=== PATIENT | male | born 1935 | race Caucasian/White ===

== ENCOUNTER 2020-12-15 08:45 | Day surgery (SDC) | payer OTHER ==
[~2020-12-15] VITALS: Ht 152.4 cm; Wt 54.5 kg
[2020-12-15] MEDS ORDERED: albumin 25% 100mL bottle x 1 IV PRN (09:35)
[2020-12-15 09:49] VITALS: BP 126/74
[2020-12-15] MEDS ORDERED: LISI40TA13 PO (10:03)
[2020-12-15] MEDS ORDERED: POTA10CA44 PO (10:03)
[2020-12-15] MEDS ORDERED: FERR142T14 PO (10:03)
[2020-12-15] MEDS ORDERED: METO-395 PO (10:03)
[2020-12-15] MEDS ORDERED: BIMA2.5D OP (10:03)
[2020-12-15] MEDS ORDERED: FURO40TA4 PO (10:03)
[2020-12-15 10:09] VITALS: BP 97/66
[2020-12-15 10:15] VITALS: BP_SYST 113; BP_SYST 13; BP_DIAS 66
[2020-12-15 10:30] VITALS: BP 124/72
[2020-12-15 10:41] VITALS: BP 137/67
== END 2020-12-15 10:45 | disposition home or self-care (01) ==
LOC: SSTAY O 08:45
PROVIDERS: ATTEND Radiology Vascular & Interventional Radiology
DX: J90 Pleural effusion, not elsewhere classified (principal); R06.09 Other forms of dyspnea; I10 Essential (primary) hypertension; H40.9 Unspecified glaucoma; I48.0 Paroxysmal atrial fibrillation; D50.9 Iron deficiency anemia, unspecified; I08.1 Rheumatic disorders of both mitral and tricuspid valves; Z90.49 Acquired absence of other specified parts of digestive tract; Z79.899 Other long term (current) drug therapy
CPT/HCPCS: 32555